=== PATIENT | male | born 1980 | race Caucasian/White ===

== ENCOUNTER 2018-05-12 08:58 | Outpatient (CLI) | payer OTHER, SELFPAY ==
[2018-05-12 10:17] LABS: ALT 31 U/L (12-78); AST 23 U/L (15-37); Albumin 3.9 g/dL (3.4-5.0); Alkaline Phosphatase 113 U/L (46-116); Anion Gap 7.5 mmol/L (3-11); BUN 21 mg/dL (7-18); Bilirubin, Total 0.9 mg/dL (0.2-1.0); CO2 28.5 mmol/L (21.0-32.0); CREATININE 1.02 mg/dL (0.70-1.30); Calcium 8.5 mg/dL (8.5-10.1); Chloride 105 mmol/L (98-107); Cholesterol 165 mg/dL (50-200); Glucose 95 mg/dL (70-100); HDL Cholesterol 35 mg/dL (40-60); LDL CHOLESTEROL 107 mg/dL (<100); Potassium 4.1 mmol/L (3.5-5.1); Sodium 141 mmol/L (136-145); Total Protein 7.3 g/dL (6.4-8.2); Triglyceride 127 mg/dL (30-150)
[2018-05-13 19:51] LABS: Vitamin B12 442 pg/mL (193-986)
== END 2018-05-12 09:18 ==
PROVIDERS: PCP Family Medicine
DX: Z00.00 Encounter for general adult medical examination without abnormal findings (principal); Z13.220 Encounter for screening for lipoid disorders; Z78.9 Other specified health status
CPT/HCPCS: 36415; 80053; 80061; 83721; 82607

== ENCOUNTER 2018-09-20 10:08 | Emergency (ER) | payer OTHER, SELFPAY ==
[2018-09-20 10:23] VITALS: BP 143/97; PULSE 81; RESP 14; TEMP 37.3; O2SAT 97
--- NOTE | 2018-09-20 10:48 | ED.GENADUL_ITS ---
Discharge Plan Disposition Patient Disposition: HOME Condition: Fair Discharge Details Chief Complaint: Nk/Back Pain Clinical Impression: Back pain, Sciatica Primary Care Provider: Cornelio Duran ED Provider: Gena Martinez Home Meds and New Rx's Prescriptions: New cyclobenzaprine 10 mg tablet 10 mg PO TID PRN (Reason: muscle spasm) Qty: 10 RF: 0 oxycodone 5 mg tablet 5 mg PO Q6H PRN (Reason: pain) Qty: 5 RF: 0 Continued ibuprofen [IBU] 600 mg tablet 600 mg PO QID PRNRF: 0 acetaminophen [Tylenol] 325 mg tablet 325 mg PO QID PRNRF: 0 ranitidine HCl [Zantac Maximum Strength] 150 MG tablet 1 tab PO DAILY RF: 0 Discharge Instructions Instructions: Sciatica (ED), Back Pain (ED) Additional Instructions: Encourage hydration. Encourage frequent ambulation and stretching. Continue with physical therapy. No lifting. Continue with Tylenol and/or Ibuprofen as previously advised for discomfort. You may take Ibuprofen again at 7pm. Flexeril as prescribed for muscle spasm, take this prior to bed. Oxycodone as prescribed for pain not otherwise improved. Do not drive while taking these medications. Take only as prescribed, keep in safe place. Please contact primary care to schedule follow up appointment as soon as possible. If you develop weakness in lower extremities, change in sensation, change in urinary or bowel habits, fevers/chills or other new/worsening symptoms please seek care urgently once again. Referrals: Cornelio Duran [Primary Care Provider] - Medical Decision Making Patient is a 38 year old male presenting todya with c/c of right lower back pain. States that pain began approximately 3+ months ago. 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 Has had several exacerbations of this since initial onset. States that he has been going to PT and has been seen by PCP. Reports that last night he sneezed and since then has had increased pain in the back wtih radiation into the RLE extending into the bottom of the foot. Prior to this, pain had radiated into the right buttock and stopped. Denies weakness. No fevers/chills. Endorses tingling with certain movements but no numbness. Tingling is along lateral lower extremity. No change in bowel or bladder habits. Denies any trauma. History of lamenectomy of lumbar spine. On exam, patient appears nontoxic. He appears comfortable and is able to go from sitting to standing position without any signs of discomfort. Pain elicited with forward flexion and palpation over the right buttock and right SI joint. No midline tenderness. Neuroexam is intact. Strength and reflexes equal bilaterally. With no trauma and no evidence of cauda equina, do not feel that imaging is needed at this time. Post void residual 14cc. After Skelaxin and Lidoderm patch patient continues to have pain, especially after being sedentary in bed. He feels that being sedentary greatly increases his discomfort. He is requesting further medication for pain. He does appear more uncomfortable at this time, slower to get up and down from stretcher. Gave IM Toradol, Tylenol and 5mg Oxycodone. reviewed PDMP, patient has not received pain medication in the past year. Immediately after administration, he felt much improved. Feels that he is ready for discharge. Advised he f/u with PCP as soon as possible. He has used Flexeril in the past but felt that this was too sedating. However, as he has not been sleeping well secondary to pain will try this for night time use. He will also be prescribed small amount of Oxycodone. He was given strict use precautions, opioid form given. Encouraged ambulation and stretching. he will continue with PT. Patient given strict return precautions. All of his quesitons and concerns were addressed, he isin agreement iwth this plan. HPI General Mode of arrival: ambulatory . Date/Time Provider Initiated Documentation: 09/20/18 10:18 . Limitations to Documentation: no limitations . Information obtained by: patient . History of Present Illness 38 year old M presents to the emergency department with the chief complaint of right sided lower back pain, described as moderate, with intensity rated at 7. Quality is described as aching and constant, and is localized to the back. Patient extremity (posterior right LE to foot). Patient started experiencing this month(s) and it has been constant. No relieving factors improve symptom(s), Movement worsens symptoms . Patient notes denies cough, fever/chills, rash and weakness. Patient did receive the following treatments prior to arrival, NSAID and other (tylenol, PT, ) Related Data Home Medications Medication Instructions Recorded Confirmed ranitidine HCl [Zantac Maximum 1 tab PO DAILY tab-cap 02/04/13 09/20/18 Strength] acetaminophen 325 mg tablet 325 mg PO QID PRN 09/01/18 09/20/18 ibuprofen 600 mg tablet 600 mg PO QID PRN 09/01/18 09/20/18 cyclobenzaprine 10 mg PO TID PRN #10 tab 09/20/18 oxycodone 5 mg PO Q6H PRN #5 tab 09/20/18 Previous Rx's Medication Instructions Recorded cyclobenzaprine 10 mg PO TID PRN #10 tab 09/20/18 oxycodone 5 mg PO Q6H PRN #5 tab 09/20/18 Allergies Allergy/AdvReac Type Severity Reaction Status Date / Time No Known Allergies Allergy Unverified 09/20/18 10:32 General Stated Complaint: Nk/Back Pain BIBI: 3 Review of Systems Constitutional Reports as per HPI, Denies chills, Denies fever(s), Denies headache(s) and Denies weakness ENT Denies headache(s) and Denies neck pain Cardiovascular Reports as per HPI, Denies chest pain and Denies dyspnea Respiratory Reports as per HPI, Denies cough, Denies pain on inspiration, Reports pain with cough (coughing or sneezing increased pain in lower back, no CP with this) and Denies dyspnea Gastrointestinal Denies abdominal pain, Denies change in bowel habits and Denies fecal incontinence Genitourinary Reports system reviewed and no additional complaints, except as docu (denies change in urinary habits), Denies flank pain, Denies urinary hesitancy and Denies urinary incontinence Musculoskeletal Reports as per HPI, Reports abnormal gait (antalgic gait secondary to back pain), Denies neck pain, Denies numbness, Reports radiating pain into limb, Reports stiffness (in right lower back) and Reports tingling (into RLE) Integumentary/Breasts Reports as per HPI, Denies rash and Denies wounds Neurologic Denies abnormal movements, Reports abnormal gait (antalgic gait secondary to back pain), Denies headache(s), Denies numbness, Reports tingling (into RLE) and Denies weakness PFSH Family History Mother No problems noted. Father Depression Sister No problems noted. Sister No problems noted. Sister No problems noted. Brother Asthma Maternal Grandfather No problems noted. Paternal Grandfather Bladder cancer Maternal Grandmother No problems noted. Paternal Grandmother No problems noted. 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 pets and animals: Yes pets and animals: cat(s) and dog(s) frequency: 3-4 times per week duration: 60-90 minutes/day Smoking/Tobacco Use Status: Former Tobacco Use quit date: 09/07/08 alcohol intake: current alcohol intake frequency: holidays/special occasions only Alcohol type: beer and hard liquor substance use type: marijuana maikel/yarsani: Unknown special maikel needs: No Exam Const General: cooperative, healthy appearing, comfortable, no acute distress, well developed and well groomed Nutritional Appearance: average body habitus and well nourished Orientation: alert and awake Resp Effort & Inspection: normal respiratory effort, able to speak in complete sentences and no respiratory distress Auscultation: clear to auscultation bilaterally Cardio Rate: regular rate Rhythm: regular rhythm Heart Sounds: S1 normal and S2 normal Back/Spine/Pelvis Back: no CVA tenderness Cervical Spine: normal cervical lordosis Thoracic/Lumbar Spine: thoracic and lumbar spine normal to inspection, surgical scar(s) present (2inch scar present over lumbar spine), No thoraco-lumbar ROM normal (limited forward flexion. Good extension and rotation.), No mass, No paraspinal tenderness, thoraco-lumbar ROM limited, No thoraco-lumbar spasm, No thoracic spinal tenderness and No straight leg raise positive (patient endorses tightness in right hamstrings with this, no pain. ) Pelvis: no pain with anterior-posterior compression Sacroiliac joints: on the right tender to palpation Skin General skin exam: no rashes or lesions noted Lesions: no lesions Rashes: no rashes Trauma: no lacerations or abrasions Neuro General: alert and awake Cognition: normal cognition Speech: speech normal Gait: antalgic Motor: muscle tone normal throughout, strength 5/5 throughout, no movement abnormalities noted and no fasciculations Sensory Exam: no sensory deficits noted (no saddle paresthesias) DTR's: Rt Patellar: 1+, Lt Patellar: 1+, Rt Ankle: 1+ and Lt Ankle: 1+ Plantar Reflexes: Equivocal: bilateral Coordination: [id number] test normal Psych Appearance: grossly normal and well kempt Mental Status: mental status grossly normal Speech and Movement: speech and movement normal Course Vital Signs Temperature 37.3 C 09/20/18 10:23 Pulse 81 09/20/18 10:23 Respiratory Rate 14 09/20/18 10:23 Blood Pressure 143/97 H 09/20/18 10:23 Pulse Oximetry 97 09/20/18 10:23 Temperature 37.3 C 09/20/18 10:23 Temperature Source Skin 09/20/18 10:23 Pulse 81 09/20/18 10:23 Respiratory Rate 14 09/20/18 10:23 Respiratory Effort 09/20/18 10:33 Blood Pressure 143/97 H 09/20/18 10:23 Blood Pressure Position Sitting 09/20/18 10:23 Pulse Oximetry 97 09/20/18 10:23 Oxygen Delivery Method Room Air 09/20/18 10:23 Oxygen Flow Rate 0 09/20/18 10:23
[2018-09-20] MEDS: Lidocaine 5% Patch 1 PATCH TP (11:06)
[2018-09-20 11:24] LABS: Bilirubin Negative (Negative); Blood Negative (Negative); Clarity Clear; Glucose Negative (Negative); Ketones Negative (Negative); Leukocyte Esterase Negative (Negative); Nitrite Negative (Negative); Specific Gravity 1.025 (1.005-1.025); Urobilinogen 0.2 EU/dL (Up TO 0.2); pH 5.5 (5-8)
[2018-09-20] MEDS: Ketorolac 30 MG/ML VIAL IM (12:40)
[2018-09-20] MEDS: Acetaminophen 500 MG TAB 1000 MG PO (12:41)
[2018-09-20] MEDS: oxyCODONE 5 MG TAB PO (12:41)
[2018-09-20 13:11] VITALS: BP 149/80; PULSE 84; RESP 16; TEMP 36.6; O2SAT 95
== END 2018-09-20 13:13 | disposition home or self-care (01) ==
PROVIDERS: Emergency Provider Physician Assistant; PCP Family Medicine
DX: M54.41 Lumbago with sciatica, right side (principal)
CPT/HCPCS: 36415; 96372; 99284; 81003; J1885

== ENCOUNTER 2018-11-15 19:19 | Outpatient (REF) | payer OTHER, SELFPAY ==
[2018-11-15 21:03] LABS: Bilirubin Negative (Negative); Blood Negative (Negative); Clarity Clear; Glucose Negative (Negative); Ketones Negative (Negative); Leukocyte Esterase Negative (Negative); Nitrite Negative (Negative); Urobilinogen 0.2 EU/dL (Up TO 0.2)
== END 2018-11-15 19:39 ==
LOC: LBN 19:19
PROVIDERS: PCP Family Medicine; Referring Provider Family Medicine; Visit Provider Family Medicine
DX: R10.31 Right lower quadrant pain (principal)
CPT/HCPCS: 81003

== ENCOUNTER 2021-04-17 10:52 | Outpatient (CLI) | payer MEDICAID, SELFPAY ==
[2021-04-17 12:33] LABS: ESR 7 mm/hr (0-15)
[2021-04-17 13:02] LABS: Calculated LDL 147 mg/dL (<100); Cholesterol 207 mg/dL (<200); HDL Cholesterol 34 mg/dL (40-60); Triglyceride 133 mg/dL (<150)
== END 2021-04-17 10:53 | disposition home or self-care (01) ==
LOC: LOS 10:53
PROVIDERS: PCP Family Medicine; Referring Provider Family Medicine; Visit Provider Family Medicine
DX: E78.5 Hyperlipidemia, unspecified (principal); M25.561 Pain in right knee; M25.562 Pain in left knee; R41.89 Other symptoms and signs involving cognitive functions and awareness
CPT/HCPCS: 36415; 80061; 85652; 86140

== ENCOUNTER 2021-04-22 08:37 | Outpatient (CLI) | payer MEDICAID, SELFPAY ==
--- NOTE | 2021-04-22 06:48 | DI.RAD_ITS ---
Exam(s) XR KNEE LT 3V AP,LAT,SAGAR EXAM: XR KNEE LT 3V AP,LAT,SAGAR CLINICAL HISTORY: lacy knee pain,M25.562,M25.561. TECHNIQUE: 2D digital imaging was performed. COMPARISON: CR XR KNEE RT 3V AP,LAT,SAGAR from 04/22/2021 FINDINGS: There is no evidence of fracture. There appears to be a slight increased amount of joint fluid. Bon e density is normal. No osseous lesions. No osteophytes. No significant narrowing of the compartme nts evident. There is calcification at the anterosuperior aspect of the patella-insertion site of th e quadriceps tendon. Similar findings are not seen at the level of the patellar tendon. Bone density is normal. No osseous lesions. IMPRESSION: Mild findings as above. DATA REPOSITORY: RADIATION DOSE DELIVERED:
--- NOTE | 2021-04-22 06:48 | DI.RAD_ITS ---
Exam(s) XR LUMBAR SPINE COMPLETE EXAM: XR LUMBAR SPINE COMPLETE CLINICAL HISTORY: left sciatica; hx of lumbar disc surgery,BACK PAIN, M54.9. TECHNIQUE: 2D digital imaging was performed. COMPARISON: No exams were available for comparison FINDINGS: There is no evidence of fracture or listhesis. No pars defects. There is partial sacralization of t he L5 segment. The left transverse process of L5 is developmentally large and exhibits articulation with the sacrum-SI joint. No scoliosis. Mild disc space narrowing throughout the lumbar spine. Mild degenerative changes in t he facet joints of the lower 2 levels. Sacroiliac joints appear unremarkable. No osseous lesions. Bone density is age-appropriate. IMPRESSION: DATA REPOSITORY: RADIATION DOSE DELIVERED:
--- NOTE | 2021-04-22 06:48 | DI.RAD_ITS ---
Exam(s) XR KNEE RT 3V AP,LAT,SAGAR EXAM: XR KNEE RT 3V AP,LAT,SAGAR CLINICAL HISTORY: lacy knee pain,M25.562,M25.561. TECHNIQUE: 2D digital imaging was performed. COMPARISON: CR XR KNEE LT 3V AP,LAT,SAGAR from 04/22/2021 CR XR KNEE LT 3V AP,LAT,SAGAR from 04/22/2021 FINDINGS: No evidence of fracture. Small amount of increased joint fluid. Minimal degenerative changes. No o sseous lesions. Calcification is seen at the quadriceps tendon attachment site on the anterosuperior aspect of the patella, this finding similar to the opposite-left side. No ominous osseous lesions e vident. IMPRESSION: DATA REPOSITORY: RADIATION DOSE DELIVERED:
== END 2021-04-22 08:57 ==
PROVIDERS: PCP Family Medicine; Visit Provider Family Medicine
DX: M54.42 Lumbago with sciatica, left side (principal); M25.562 Pain in left knee; M47.816 Spondylosis without myelopathy or radiculopathy, lumbar region; M48.061 Spinal stenosis, lumbar region without neurogenic claudication; M25.862 Other specified joint disorders, left knee; M17.11 Unilateral primary osteoarthritis, right knee
CPT/HCPCS: 73562; 72110

== ENCOUNTER 2021-09-30 11:05 | Outpatient (CLI) | payer MEDICAID, SELFPAY ==
--- NOTE | 2021-09-30 11:00 | RT.EKG_ITS ---
APPROVED REPORT Exam: Resting ECG Reason for Exam: chest pain Patient Location: O HR:70 bpm ECG Measurements Heart Rate 70 AXIS IN 196 P 15 QRSd 71 QRS 23 QT 368 T 37 QTc 397 Conclusion Sinus rhythm...normal P axis, V-rate 60- 99 Normal Electrocardiogram
== END 2021-09-30 11:06 | disposition home or self-care (01) ==
LOC: DI.CM 11:06
PROVIDERS: PCP Family Medicine; Visit Provider Family Medicine
DX: R07.9 Chest pain, unspecified (principal)
CPT/HCPCS: 93010

== ENCOUNTER 2023-01-16 19:23 | Outpatient (CLI) | payer MEDICAID, SELFPAY ==
--- NOTE | 2023-01-16 19:15 | RT.EKG_ITS ---
APPROVED REPORT Exam: Resting ECG Reason for Exam: leg pain Patient Location: O HR:89 bpm ECG Measurements Heart Rate 89 AXIS SC 192 P 35 QRSd 91 QRS 37 QT 340 T 19 QTc 414 Conclusion Sinus rhythm...normal P axis, V-rate 50- [address] elevation, anterior leads...ST >0.10mV, V1-V4
--- NOTE | 2023-01-16 19:45 | RT.EKG_ITS ---
APPROVED REPORT Exam: Resting ECG Reason for Exam: Repeat Patient Location: O HR:83 bpm ECG Measurements Heart Rate 83 AXIS [place] 189 P 10 QRSd 90 QRS 45 QT 355 T 26 QTc 418 Conclusion Sinus rhythm...normal P axis, V-rate 50- [address] elevation, anterior leads...ST >0.10mV, V1-V4
== END 2023-01-16 19:24 | disposition home or self-care (01) ==
PROVIDERS: PCP Family Medicine; Visit Provider Nurse Practitioner Family
DX: R55 Syncope and collapse (principal)
CPT/HCPCS: 93010

== ENCOUNTER 2023-01-19 16:16 | Outpatient (CLI) | payer MEDICAID, SELFPAY ==
--- NOTE | 2023-01-19 09:15 | DI.US_ITS ---
Exam(s) US LOWER EXTREMITY VENOUS RT EXAM: US LOWER EXTREMITY VENOUS RT CLINICAL HISTORY: evaluate DVT M79.661 PAIN IN RT LOWER LEG. TECHNIQUE: Lower extremity venous ultrasound performed using grayscale, color-flow, and spectral Do ppler analysis. COMPARISON: No exams were available for comparison FINDINGS: The common femoral, femoral and popliteal veins demonstrate normal compressibility, augmentation, and color Doppler. The posterior tibial veins are patent. No saphenous vein thrombosis. In the area of patient's tenderness in the upper medial calf, there is a varicose vein with occlusive thrombus whic h appears acute. No hematoma or Cedillo's cyst is seen. IMPRESSION: Thrombus in varicosity in the upper medial calf approximately 8 cm in length. No evidence of DVT. DATA REPOSITORY:
== END 2023-01-19 16:36 ==
LOC: DI 16:19
PROVIDERS: PCP Family Medicine; Visit Provider Nurse Practitioner Family
DX: I82.811 Embolism and thrombosis of superficial veins of right lower extremity
CPT/HCPCS: 93971

== ENCOUNTER → 2023-10-02 15:08 | Outpatient (CLI) | payer MEDICAID, SELFPAY ==
--- NOTE | 2023-10-02 12:00 | DI.US_ITS ---
Exam(s) US LOWER EXTREMITY VENOUS RT EXAM: US LOWER EXTREMITY VENOUS RT CLINICAL HISTORY: right leg swelling, recent trauma, M79.89. TECHNIQUE: Lower extremity venous ultrasound performed using grayscale, color-flow, and spectral Do ppler analysis. COMPARISON: No exams were available for comparison FINDINGS: The common femoral, femoral and popliteal veins demonstrate normal compressibility, augmentation, and color Doppler. The posterior tibial veins are patent. No saphenous vein thrombosis or other superfi cial venous thrombosis is seen. No hematoma or Cedillo's cyst is seen. IMPRESSION: Negative lower extremity ultrasound. No evidence of DVT. DATA REPOSITORY:
== END ==
PROVIDERS: PCP Family Medicine; Visit Provider Family Medicine
DX: M79.89 Other specified soft tissue disorders (principal)
CPT/HCPCS: 93971

== ENCOUNTER → 2023-12-14 03:22 | Outpatient (CLI) | payer MEDICAID, SELFPAY ==
--- NOTE | 2023-12-14 07:32 | DI.US_ITS ---
Exam(s) US SOFT TISS ABD WALL/LOW BACK EXAM: US SOFT TISS ABD WALL/LOW BACK CLINICAL HISTORY: right sided abdomINAL WALL LUMP,R22.2. TECHNIQUE: Ultrasound was performed using standard protocol over the bilateral areas of concern.. COMPARISON: None FINDINGS: There are somewhat symmetrical findings just above both inguinal regions which have the appearance of probable variant type lipomas. The one in the right lower quadrant measures 2.3 x 0.7 x 3.4 cm. Th e similar finding in the left lower quadrant measures 1.2 x 0.5 x 2.3 cm IMPRESSION: Somewhat similar appearing findings bilaterally as described above but with asymmetric size. Have ap pearance of possible variant lipomas. Therefore recommend follow-up CT scan. DATA REPOSITORY:
== END ==
PROVIDERS: PCP Family Medicine; Visit Provider Physician Assistant
DX: R22.2 Localized swelling, mass and lump, trunk (principal); D17.39 Benign lipomatous neoplasm of skin and subcutaneous tissue of other sites
CPT/HCPCS: 76705

== ENCOUNTER → 2023-12-16 05:13 | Outpatient (CLI) | payer MEDICAID, SELFPAY ==
--- NOTE | 2023-12-16 08:00 | DI.CT_ITS ---
Exam(s) CT ABDOMEN PELVIS W EXAM: CT ABDOMEN PELVIS W CLINICAL HISTORY: differentiate abd mass,r19.00. TECHNIQUE: Imaging Protocol: Axial computed tomography images with coronal and sagittal reformatted images were created and reviewed CONTRAST MATERIAL: Intravenous: Omnipaque 350 Contrast volume:100 ml Oral: yes COMPARISON: US US SOFT TISS ABD WALL/LOW BACK from 12/14/2023 FINDINGS: ABDOMEN and PELVIS: Lung Bases: No acute findings. Liver: Normal density. No measurable mass. Gallbladder and biliary tract: 2 gallstones are visible. No abnormal gallbladder distention or wall thickening. No biliary dilatation. Pancreas: Normal density. No abnormal calcifications or inflammatory process. No evidence of mass. Spleen: Normal. Kidneys: Normal size, contour and axis. No radiodense stones. No obstructive uropathy. No suspicious masses seen. Adrenal glands: No masses seen. Vasculature: Abdominal aorta non-dilated. Soft tissues: Mild edema in the lower anterior abdominal wall subcutaneous fat. No evidence of lipom a. Bladder: Nearly empty. Bowel: No obstruction. No bowel wall thickening. Appendix normal. Normal quantity of stool. Peritoneal cavity: No ascites. No focal collection or mesenteric inflammatory response. Bones: Degenerative disc changes in the lower thoracic spine, somewhat advanced for age. Mild anteri or wedging of T10 through T12 appears chronic. Degenerative changes of the facet joints in the lumba r region. Reproductive organs: Within normal limits. Lymph nodes: Unremarkable. IMPRESSION:: Mild edema is in the subcutaneous fat of the lower anterior abdominal wall. The no lip yaneth is visible. Cholelithiasis noted. RADIATION DOSE DELIVERED: Total DLP DATA REPOSITORY: All CT scans at this facility are submitted to the National Radiology Data Registry (NRDR) Dose Index Registry (DIR) with the [employer] ([employer]). RADIATION OPTIMIZATION: All CT scans at this facility use at least one of these dose optimization te chniques: automated exposure control; mA and/or kV adjustment per patient size (includes targeted exa ms where dose is matched to clinical indication); or iterative reconstruction.
[2023-12-16] MEDS: Barium Sulfate 2% W/V-Berry Smoothie 450 ML BTL PO ×2 (11:04→11:07)
[2023-12-16] MEDS: Normal Saline - Diluent 50 ML VIAL IJ (13:23)
[2023-12-16] MEDS: Omnipaque 350 MG/ML 100 ML BTL IJ (13:24)
== END ==
PROVIDERS: PCP Family Medicine; Visit Provider Nurse Practitioner Family
DX: R19.09 Other intra-abdominal and pelvic swelling, mass and lump (principal); K80.20 Calculus of gallbladder without cholecystitis without obstruction; R60.0 Localized edema
CPT/HCPCS: 74177; J3490

== ENCOUNTER 2024-02-11 05:17 | Outpatient (CLI) | payer MEDICAID, SELFPAY ==
[2024-02-11 11:20] LABS: Abs Immature Grans 0.05 10^3/uL (0.0-0.06); Absolute Basophil Count 0.07 10^3/uL (0.0-0.2); Absolute Eosinophil Count 0.07 10^3/uL (0.0-0.7); Absolute Lymphocyte Count 2.01 10^3/uL (1.2-3.4); Absolute Monocyte Count 0.79 10^3/uL (0.1-0.8); Absolute Neutrophil Count 5.38 10^3/uL (1.2-6.7); Basophils % 0.8 %; Eosinophils % 0.8 %; HCT 45.1 % (40.0-50.0); HGB 15.8 g/dL (13.5-17.5); Immature Grans % 0.6 %; MCH 31.8 pg (27.0-33.0); MCV 91 fL (80-95); MPV 9.3 fL (8.0-11.0); Monocytes % 9.4 %; Neutrophils % 64.4 %; Platelet Count 247 10^3/uL (130-400); RBC 4.97 10^6/uL (4.36-5.78); RDW 14.9 % (11.8-14.1); RDW-SD 50.1 fL; WBC 8.37 10^3/uL (4.4-10.8)
[2024-02-11 12:15] LABS: ALT 116 U/L (16-63); AST 74 U/L (15-37); Albumin 4.1 g/dL (3.4-5.0); Alkaline Phosphatase 40 U/L (46-116); Anion Gap 9.1 mmol/L (3-11); BUN 20 mg/dL (7-18); CO2 25.9 mmol/L (21.0-32.0); CREATININE 1.4 mg/dL (0.70-1.30); Calcium 8.6 mg/dL (8.5-10.1); Calculated LDL 128 mg/dL (<100); Chloride 105 mmol/L (98-107); Cholesterol 167 mg/dL (<200); Estimated GFR 64.76 (mL/min/1.73m2); Glucose 105 mg/dL (74-106); HDL Cholesterol 31 mg/dL (40-60); Potassium 4.8 mmol/L (3.5-5.1); Sodium 140 mmol/L (136-145); Total Protein 7.1 g/dL (6.4-8.2); Triglyceride 40 mg/dL (<150)
[2024-02-18 13:34] LABS: Testosterone, Free 98.7 ng/dL (4.46-17.1); Testosterone, Total 1970 ng/dL (240-950)
== END 2024-02-11 05:18 | disposition home or self-care (01) ==
LOC: LBO 05:17
PROVIDERS: PCP Family Medicine; Visit Provider Family Medicine
DX: Z00.00 Encounter for general adult medical examination without abnormal findings (principal); N52.9 Male erectile dysfunction, unspecified; Z79.890 Hormone replacement therapy; Z13.6 Encounter for screening for cardiovascular disorders
CPT/HCPCS: 36415; 80053; 80061; 84402; 84403; 85025

== ENCOUNTER 2024-05-26 08:57 | Outpatient (CLI) | payer MEDICAID, SELFPAY ==
--- NOTE | 2024-05-26 08:30 | DI.RAD_ITS ---
Exam(s) XR SHOULDER RT COMPLETE 2+V EXAM: XR SHOULDER RT COMPLETE 2+V CLINICAL HISTORY: ? AC joint abnormality, rt shoulder pain, m25.511. TECHNIQUE: 2D digital imaging was performed. Five views. COMPARISON: No exams were available for comparison FINDINGS: BONES: No acute fracture is present. No bony destructive lesion is seen. JOINTS: No dislocation present. The glenohumeral joint space is maintained. There is mild spurring at the glenoid. There is some spurring at the undersurface of the acromion as well as AC joint. SOFT TISSUE: Normal. IMPRESSION: Mild degenerative changes. DATA REPOSITORY: RADIATION DOSE DELIVERED:
== END 2024-05-26 09:17 ==
LOC: DI 08:57
PROVIDERS: PCP Family Medicine; Visit Provider Family Medicine
DX: M25.511 Pain in right shoulder (principal)
CPT/HCPCS: 73030

== ENCOUNTER 2024-06-08 01:14 | Outpatient (CLI) | payer MEDICAID, SELFPAY ==
--- NOTE | 2024-06-08 15:20 | DI.MRI_ITS ---
Exam(s) MR UPPER JOINT RT WO EXAM: MR UPPER JOINT RT WO CLINICAL HISTORY: right shoulder pain x 6 wks,m25.511. TECHNIQUE: Multiplanar multisequence MRI was performed. COMPARISON: Plain films 26 May 2024 FINDINGS: BONES/joints: There is some edema in the marrow of the distal clavicle and acromion and a small amoun t of fluid in the AC joint. There [id number] degenerative changes with some inferior spurring. This appears to impinge on the distal supraspinatus muscle tendon junction. The glenohumeral joint is normal. TENDONS: Supraspinatus: Unremarkable. Infraspinatus: Unremarkable. Subscapularis: Unremarkable. Teres [place]: Unremarkable. Biceps and [place]: Unremarkable. MUSCLES: Unremarkable. GLENOID LABRUM: Unremarkable on this noncontrast examination. SOFT TISSUES: Unremarkable. OTHER: Subacromial and subdeltoid bursae show no fluid. . IMPRESSION: High signal in the AC joint and surrounding bones could be posttraumatic or arthritic. Clinical wilmar elation recommended. Degenerative changes of the AC joint some inferior spurring which may impinge on the distal supraspin atus muscle tendon junction although there is no abnormal high signal in this area. No evidence of a tendon tear. DATA REPOSITORY:
== END 2024-06-08 01:34 ==
LOC: DI 01:14
PROVIDERS: PCP Family Medicine; Visit Provider Family Medicine
DX: M19.011 Primary osteoarthritis, right shoulder (principal)
CPT/HCPCS: 73221

== ENCOUNTER 2024-06-29 15:48 | Outpatient (CLI) | payer MEDICAID, SELFPAY ==
--- NOTE | 2024-06-29 14:30 | DI.RAD_ITS ---
Exam(s) XR CLAVICLE RT EXAM: XR CLAVICLE RT CLINICAL HISTORY: RIGHT SHOULDER PAIN TECHNIQUE: 2D digital imaging was performed of the right clavicle. Images were obtained. AP and ax ial views were obtained. COMPARISON: CR XR SHOULDER RT COMPLETE 2+V from 05/26/2024 MR MR UPPER JOINT RT WO from 06/08/2024 FINDINGS: BONES: No acute fracture is present. No bony destructive lesion is seen. JOINTS: No dislocation present. There are mild degenerative changes seen at the acromioclavicular eri nt. There may be mild spurring at the inferior aspect of the acromion. SOFT TISSUE: Normal IMPRESSION: Degenerative changes seen at the acromioclavicular joint. DATA REPOSITORY: RADIATION DOSE DELIVERED:
== END 2024-06-29 15:49 | disposition home or self-care (01) ==
LOC: DIORS 15:49
PROVIDERS: PCP Family Medicine; Visit Provider Student in an Organized Health Care Education/Training Program
DX: M19.011 Primary osteoarthritis, right shoulder (principal)
CPT/HCPCS: 73000

== ENCOUNTER 2024-11-21 14:01 | Outpatient (REF) | payer MEDICAID, SELFPAY ==
[2024-11-22 20:14] LABS: HIV-1/2 Ag & Ab Screen Negative (Negative)
[2024-11-22 20:22] LABS: Hepatitis C Ab w Rflx HCV PCR Negative (Negative)
[2024-11-23 10:56] LABS: Syphilis Serology (RPR) Negative (Negative)
[2024-11-23 11:05] LABS: HSV Type 1 Ab, IgG Positive (Negative); HSV Type 2 Ab, IgG Positive (Negative)
[2024-11-23 12:36] LABS: Chlamydia Result Negative (Negative); GC Result Negative (Negative)
== END 2024-11-21 14:02 | disposition home or self-care (01) ==
LOC: LBN 14:01
PROVIDERS: PCP Family Medicine; Visit Provider Nurse Practitioner Family
DX: Z11.3 Encounter for screening for infections with a predominantly sexual mode of transmission (principal)
CPT/HCPCS: 86803; 87389; 87491; 87591; 86592; 86695; 86696

== ENCOUNTER 2025-02-10 00:37 | Outpatient (CLI) | payer MEDICAID, SELFPAY ==
--- NOTE | 2025-02-10 07:15 | DI.MRI_ITS ---
Exam(s) MR CERVICAL SPINE WO EXAM: MR CERVICAL SPINE WO CLINICAL HISTORY: ? disc injury,cervical radiculopathy,M54.12 TECHNIQUE: Multiplanar multisequence MRI of the cervical spine was performed without intravenous con trast. COMPARISON: No exams were available for comparison FINDINGS: CERVICOMEDULLARY JUNCTION: Intact with no evidence of cerebellar tonsillar ectopia. No obvious abnor mality of the odontoid process. No evidence of Chiari 1 malformation. CERVICAL SPINAL CORD: There is no abnormal signal in the cervical spinal cord and no evidence of foca l cord atrophy nor focal cord swelling. OSSEOUS:There are no cervical fractures evident. No significant osseous lesions in the cervical vert ebrae. There is straightening of the cervical curvature noted. INDIVIDUAL LEVELS: C2-3: No disc herniation nor central canal stenosis. No foraminal stenosis. No facet arthropathy. C3-4: Normal disc height and signal. No disc herniation. Central canal dimensions are lower normal. No facet arthropathy. No foraminal stenosis on the right side. On the left side there is disc-Kirstie chka joint osteophyte complex as seen on the oblique sagittal imaging causing mild left-sided foramin al stenosis. C4-5: Normal disc height and signal. No disc herniation. Mild central canal stenosis. Some facet a rthropathy on the right side noted. No facet arthropathy on the left. No foraminal stenosis on eith er side. C5-6: Normal disc height. However, there is broad posterior annular bulging and there are bilateral disc-Luschka joint osteophyte complexes. There is mild-moderate central spinal canal stenosis. Ther e is no significant facet arthropathy at this level. Disc-osteophyte complex on the left side result s in mild left-sided foraminal stenosis. Similar finding on the right side at this level mild right- sided foraminal stenosis. C6-7: Mild decreased disc height. There is a posterolateral right disc herniation at this level whic h extends posteriorly 5 mm and is approximately 1.5 cm wide. This occupies the right lateral recess and this disc herniation measures 8 mm length in the craniocaudal dimension. There is no obvious fac et arthropathy at this level. The posterolateral herniated disc on the right side extends towards th e floor of the exiting right neural foramen. There is, however, only minimal right-sided foraminal s tenosis at this level. On the left side at this level there is Luschka joint osteophyte and mild for aminal stenosis. . C7-T1: No disc herniation nor central canal stenosis. No facet arthropathy.No foraminal stenosis. IMPRESSION: 1. Degenerative disc disease as described per individual level above, most prominent at C6-7 level wh ere there is posterolateral right disc herniation extending posteriorly 5 mm and approximately 15 mm wide and 8 mm craniocaudal. Results in an element of spinal canal stenosis at this level although th ere is no obvious signal abnormality in the cord at this level. 2. Asymmetric foraminal stenosis findings as described individually above. 3. There is no prominent facet arthropathy in the cervical spine. There are, however, multilevel Kirstie chka joint osteophytes evident. DATA REPOSITORY:
== END 2025-02-10 00:57 ==
LOC: DI 00:37
PROVIDERS: PCP Family Medicine; Visit Provider Physician Assistant
DX: M54.12 Radiculopathy, cervical region (principal)
CPT/HCPCS: 72141